=== PATIENT | male | born 1940 | race Caucasian/White ===

== ENCOUNTER 2016-12-15 12:49 | Outpatient (CLI) ==
[2016-05-19 13:49] VITALS: BMI 40.4
== END 2016-12-15 12:50 | disposition home or self-care (01) ==
LOC: CAR 12:49
PROVIDERS: ATTEND Family Medicine
DX: R09.02 Hypoxemia (principal)
CPT/HCPCS: 94761

== ENCOUNTER 2017-03-24 13:21 | Outpatient (CLI) ==
[2016-05-19 13:49] VITALS: BMI 40.4
[2017-03-24 13:41] LABS: HEMATOCRIT 42.6 % (42.0-52.0); HEMOGLOBIN 14.1 g/dl (14.0-18.0); MEAN CORPUSCULAR HEMOGLOBIN 32.7 pg (27.0-31.0); MEAN CORPUSCULAR HGB CONC 33.1 (31.8-35.4); MEAN CORPUSCULAR VOLUME 98.8 fl (80.0-94.0); RED BLOOD COUNT 4.31 10^6/ul (4.70-6.10); WHITE BLOOD COUNT 10.7 K/ul (4.2-10.2)
[2017-03-24 13:58] LABS: BILIRUBIN,URINE Negative (NEGATIVE); KETONES,URINE Negative (NEGATIVE); LEUKOCYTE ESTERASE ,URINE Negative (NEGATIVE); NITRITE,URINE Negative (NEGATIVE); PROTEIN,URINE Negative (NEGATIVE); URINE, BLOOD Negative (NEGATIVE)
[2017-03-24 14:00] LABS: ADD URINE MICROSCOPIC NO
[2017-03-24 14:18] LABS: ALBUMIN 3.6 g/dL (3.4-5.0); ANION GAP 17.3; BUN/CREATININE RATIO 17.56; CALCIUM 9.4 mg/dL (8.2-10.2); CREATININE 1.48 mg/dL (0.60-1.10); MAGNESIUM 2.3 mg/dL (1.7-2.2); PHOSPHORUS 3.2 mg/dL (2.3-3.7); POTASSIUM 4.3 mmol/L (3.5-5.1); URIC ACID 8.7 mg/dL (2.6-7.2)
[2017-03-25 09:37] LABS: URINE CREATINE 173.6 mg/dL (Not Estab.)
== END 2017-03-24 13:22 | disposition home or self-care (01) ==
LOC: LAB 13:21
PROVIDERS: ATTEND Internal Medicine Nephrology
DX: N18.3 Chronic kidney disease, stage 3 (moderate) (principal); E55.9 Vitamin D deficiency, unspecified; I10 Essential (primary) hypertension
CPT/HCPCS: 36415; 80069; 81001; 82306; 82570; 83735; 83970; 84156; 84550; 85027

== ENCOUNTER 2017-08-18 21:54 | Outpatient (CLI) ==
[2016-05-19 13:49] VITALS: BMI 40.4
== END 2017-08-18 21:55 | disposition short-term general hospital (02) ==
LOC: AMBL 21:54
PROVIDERS: ATTEND Emergency Medicine
DX: R11.2 Nausea with vomiting, unspecified (principal); R10.9 Unspecified abdominal pain; R19.7 Diarrhea, unspecified

== ENCOUNTER 2018-06-06 15:38 | Emergency (ER) ==
[2018-06-06 15:43] VITALS: BP 126/66; TEMP 97.9; BMI 37.6
--- NOTE | 2018-06-06 17:51 | ED.PDOC ---
General ED Provider: Dr. RANDOLPH ROTHMAN Chief Complaint: Non-specific Complaint Stated Complaint: BUGS CRAWLING ON MILES AND ALL OVER CHAIR AT NH Time Seen by Physician: 16:20 Mode of Arrival: Wheelchair Information Source: Patient, Family Exam Limitations: No limitations Primary Care Provider: RANDOLPH DELGADO Referred to ED by: Other (FAMILY) Nursing and Triage Documentation Reviewed and Agree: Yes Does patient meet sepsis criteria?: No System Inflammatory Response Syndrome: Not Applicable Sepsis Protocol: For patient's 13 years and over: Temp is 96.8 and below OR 101 and greater Pulse >90 BPM Resp >20/minute Acutely Altered Mental Status Are patient's symptoms suggestive of a new infection, such as: -Pneumonia -Skin, Soft Tissue -Endocarditis -UTI -Bone, Joint Infection -Implantable Device -Acute Abdominal Infection -Wound Infection -Meningitis -Blood Stream Catheter Infection -Unknown Review of Systems - Review Of Systems Constitutional: Reports: No symptoms, Weakness Eyes: Reports: No symptoms Ears, Nose, Mouth, Throat: Reports: No symptoms Respiratory: Reports: No symptoms Cardiac: Reports: No symptoms GI: Reports: No symptoms : Reports: No symptoms Musculoskeletal: Reports: No symptoms, Other (weakness) Skin: Reports: No symptoms Neurological: Reports: No symptoms Endocrine: Reports: No symptoms Hematologic/Lymphatic: Reports: No symptoms All Other Systems: Reviewed and Negative Past Medical History - Past Medical History Endocrine: Reports: None Cardiovascular: Reports: Hypertension Respiratory: Reports: None Hematological: Reports: None Gastrointestinal: Reports: None Genitourinary: Reports: None Neuro/Psych: Reports: Anxiety, Depression Musculoskeletal: Reports: None Cancer: Reports: None Other Pertinent Past Medical History: states a week ago they found his oxygen sat. was low. patient has been on - Surgical History General Surgical History: Reports: Appendectomy - Family History Family History: Reports: Unknown - Social History Smoking Status: Never smoker Hx Substance Use: No Alcohol Screening: None - Immunizations Tetanus Shot up to Date: Yes Physical Exam - Physical Exam Appearance: Obese Ill-appearing: None Pain Distress: None Eyes: MARILIA, EOMI, Conjunctiva clear ENT: Ears normal, Nose normal, Oropharynx normal Respiratory: Airway patent, Breath sounds clear, Breath sounds equal, Respirations nonlabored Cardiovascular: RRR, Pulses normal, No rub, No murmur GI/: Soft, Nontender, No masses, Bowel sounds normal, No Organomegaly Musculoskeletal: Normal strength (global weakness/unable to assist with sitting up in chair) Skin: Warm (small black -brown item retrieved from right posterior shoulder region ) Neurological: Sensation intact, Motor intact, Cranial nerves intact, Oriented Psychiatric: Affect appropriate, Mood appropriate Critical Care Note - Critical Care Note Total Time (mins): 0 Course - Course Vital Signs: Temp Pulse Resp BP Pulse Ox 06/06/18 15:39 97.9 F 90 16 126/66 88 L Departure - Departure Time of Disposition: 17:50 Disposition: DISCH/TSF TO [facility] Discharge Problem: Bug bite, Erica infection of flexural skin Instructions: Itchy Skin (ED) Condition: Good Pt referred to PMD for follow-up: Yes (see pcp in next few weeks) IPMP verified?: No Additional Instructions: CLEANSE AREAS IN ROOM MONITOR FOR ITCHING AND RASH ON SKIN CONTINUE CURRENT TREATMENT FOR RASH IN GROIN Allergies/Adverse Reactions: Allergies No Known Allergies Allergy (Unverified 05/19/16 13:43) Home Medications: Ambulatory Orders Alprazolam [Xanax] 0.5 mg PO BID 05/02/14 Amlodipine Besylate [Norvasc] 5 mg PO DAILY 05/02/14 Cholecalciferol (Vitamin D3) [Vitamin D] 1 tab PO WEEKLY 05/02/14 Lisinopril [Zestril] 40 mg PO DAILY 05/02/14 Omeprazole [Prilosec] 20 mg PO DAILY 05/02/14 Torsemide [Demadex] 10 mg PO DAILY 05/02/14 Lovastatin 40 mg PO DAILY 05/19/16 Meloxicam [Mobic] 15 mg PO DAILY 05/19/16 Disposition Discussed With: Patient, Family
== END 2018-06-06 18:26 ==
LOC: ED 15:38
DX: B37.89 Other sites of candidiasis (principal)
CPT/HCPCS: 99281